=== PATIENT | male | born 1995 | race African-American/Black ===

== ENCOUNTER 2019-06-11 15:08 | Emergency (ER) | payer OTHER ==
[~2019-06-11] VITALS: Ht 175.3 cm; Wt 81.3 kg
[2019-06-11] MEDS ORDERED: TRAMADOL HCL 50 MG TAB PO ONE (16:15)
[2019-06-11 16:27] VITALS: BP 124/75
== END 2019-06-11 16:31 | disposition home or self-care (01) ==
LOC: FSED 15:08
DX: Z93.3 Colostomy status (principal); Z87.19 Personal history of other diseases of the digestive system
CPT/HCPCS: 99283

== ENCOUNTER 2019-11-30 17:27 | Emergency (ER) | payer OTHER ==
[~2019-11-30] VITALS: Ht 170.2 cm; Wt 76.7 kg
--- OUTSIDE RECORDS SUMMARY | 2019-11-30 17:31 | XMS REPORT ---
Author Author 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 Attphys Unavailable KAREN CHACKO Attphys Unavailable TANK MCNULTY M.D., TANK BASSETT M.D. 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 [facility] Allergies, Adverse Reactions, Alerts Allergy Name Allergy Type Status Severity Reaction(s) Onset Date Inacti ve Date Treating Clinician Comments Source No Known Allergies DA Active U 2019-07-13 00:00:00 [facility] No Known Allergies DA Active U 2018-07-21 00:00:00 [facility] Family History Family Member Diagnosis Comments Start Date Stop Date Source Mother [facility] Father Family history of hypertension [facility] Social History Smoking Status Start Date Stop Date Source Never smoker [facility] Medications Ordered Medication Name Filled Medication Name Start Date Stop Da te Current Medication? Ordering Clinician Indication Dosage Frequency Signature (SIG) Comments Components Source Flonase SUSP Flonase SUSP Yes [facility] traMADol HCl TABS traMADol HCl TABS Yes [facility] Vital Signs Vital Name Observation Time Observation Value Comments Source BP Systolic 2019-04-28 15:29:00 102 mm[Hg] Location: RUE; Positi on: Sitting [facility] BP Diastolic 2019-04-28 15:29:00 63 mm[Hg] Location: RUE; Positi on: Sitting [facility] Height 2019-04-28 15:29:00 67 [in_us] [facility] Weight 2019-04-28 15:29:00 177 [lb_av] [facility] Body Mass Index Calculated 2019-04-28 15:29:00 27.72 kg/m2 [facility] Temperature 2019-04-28 15:29:00 96.7 [degF] [facility] Heart Rate 2019-04-28 15:29:00 87 /min [facility] Procedures Procedure Date / Time Performed Performing Clinician Sour e History of Colon surgery [facility] Encounters Start Date/Time End Date/Time En[facility] Encounter ID Source 2019 06:07:00 Inpatient [facility] [address] [facility] 2019-03-01 21:27:00 Inpatient E [facility] [id number] [facility] 2019-07-14 19:04:00 2019-07-14 20:22:00 Departed Emergency Room [facility] [id number] [facility] 2019-06-24 23:22:00 2019-06-24 23:22:00 Emergency [place] [id number] [facility] 2019-06-11 15:08:00 2019-06-11 16:31:00 Departed Emergency Room [facility] [id number] [facility] 2019-05-24 06:11:00 2019-05-24 06:11:[address] 2019-04-28 19:07:00 2019-04-28 19:40:00 Departed Emergency Room [facility] [id number] [facility] 2019-04-28 15:50:00 2019-04-28 15:50:00 Appointment; ROSE MENA M. D. DAVEE, ROY, M.D. [facility] Gastroenterology [facility] [id number] [facility] 2019-04-27 16:00:00 2019-04-27 16:00:00 Appointment; KAREN CHACKO OMAR [facility]TP UTP [id number] [facility] 2019-03-24 16:30:00 2019-03-24 16:30:00 Appointment; KAREN CHACKO OMAR UTP UTP [id number] [facility] 2019-03-05 09:45:00 2019-03-05 09:45:00 Appointment; KAREN CHACKO OMAR UTP [facility] [id number] [facility] 2019-03-05 07:00:00 2019-03-05 07:00:00 Appointment; KAREN CHACKO OMAR UTP [facility] [id number] [facility] 2019-03-04 07:00:00 2019-03-04 07:00:00 Appointment; KAREN CHACKO OMAR [facility] UTP [id number] [facility] 2019-03-03 17:00:00 2019-03-03 17:00:00 Appointment; RICCOKAREN FLEMING OMAR UTP UTP [id number] [facility] Results Test Description Test Time Test Comments Results Result Comments Source - XR FOOT 3 + V RT 2019-09-22 13:10:00 Name: NANCI KUMAR [facility] : 1995 Age/S:24 /M [address] [facility] Unit#:[id number] Loc: [place] [address] 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 The osseous structures are unremarkable in size and shape. The joint spaces are maintained. No evidence of fracture. The phalanges are intact. The metatarsal and tarsal bones are unremarkable IMPRESSION: Unremarkable right foot at 1310 Reported and signed by: Mani Jacob M.D. CC: Kwabena Mix DO; Igor Terrell NP Technologist: DAVID MCNEAL, RT(R),CT Trnscrpt Data: 09/22/2019 (131) t.ALMAR.VTL Orig Print D/T: S: 09/22/2019 (5436) PAGE 1 Signed Report - US ABDOMEN LTD 2019-07-13 20:48:00 Name: CRESPO ROLANDNANCI PRICILA [facility] : 1995 Age/S: 24 / M [address] [facility] Unit #: [id number] Loc: [place] [address] Phys: Mignon Cavazos MD Acct: [id number] Dis Date: Status: REG ER PHONE #: [phone] Exam Date: 07/13/20192044 FAX #: [phone] Reason: COLOSTOMY TAKE DOWN SITE PAIN EXAMS: CPT CODE: [id number] US ABDOMEN LTD [id number] REASON FOR EXAM: COLOSTOMY TAKE. SITE PAIN EXAM ORDER DATE: 07/13/2019 8:09 PM Ordering: Mignon Cavazos MD Attending:Mignon Cavazos MD Location: PROCEDURE: - US ABDOMEN LTD FINDINGS: Limited focal ultrasound performed in the left anterior abdominal wall at the old colostomy site. No evidence of fluid collection, abscess, or hernia noted. IMPRESSION: No evidence of abscess or fluid collection or hernia at 2048 Reported and signed by: Mani Jacob M.D. CC: Kwabena Mix DO Technologist: Mami Spain RDMS Trnscb Date/Time: 07/13/2019 (2047) Pat.VTL Orig Print D/T: S: 07/13/2019 (2050) Probe: PAGE 1 Signed Report BASIC METABOLIC PANEL 2019-07-13 20:41:00 Test Item SODIUM (test code = NA) 141 mmol/L 135-148 N POTASSIUM (test code = K) 3.4 mmol/L 3.5-5.1 L CHLORIDE (test code = CL) 105 mmol/L 101-109 N CARBON DIOXIDE (test code = CO2) 28.2 mmol/L 21-32 N ANION GAP (test code = GAP) 11 mmol/L 10-20 N GLUCOSE (test code = GLU) 90 mg/dL 74-106 N BLOOD UREA NITROGEN (test code = BUN) 10 mg/dL 3-21 N GLOMERULAR FILTRATION RATE (test code = GFR) > 60 mL/min >=60 Estimated GFR by using Modified MDRD formula.Chronic kidney disease is defined as either kidney damageor GFR <60 mL/min/1.73 m2 for >3 months. CREATININE (test code = CREAT) 0.87 mg/dL 0.55-1.3 N BUN/CREATININE RATIO (test code = BUN/CREA) 11.5 10-20 N CALCIUM (test code = CA) 9.2 mg/dL 8.4-10.2 N COMPREHENSIVE METABOLIC [id number] 20:41:00* Test Item Value Reference Range Interpretation Comments TOTAL PROTEIN (test code = PROT) 7.7 g/dL 6.5-8.4 N ALBUMIN (test code = ALB) 3.8 g/dL 3.4-4.8 N GLOBULIN (test code = GLOB) 3.9 G/DL 1-10 N ALBUMIN/GLOBULIN RATIO (test code = A/G) 1.0 RATIO 0.75-1.50 N BILIRUBIN TOTAL (test code = BILT) 0.40 mg/dL 0.0-1.0 N SGOT/AST (test code = AST) 11 U/L 6-32 N SGPT/ALT (test code = ALT) 15 U/L 12-78 N N ote: Change in REFERENCE RANGE due to new reagent method. ALKALINE PHOSPHATASE TOTAL (test code = ALKP) 73 U/L 38-126 N [id number] 20:41:00* Test Item Value Reference Range Interpretation Comments LIPASE (test code = LIP) 134 U/L 128-270 N - XR ANKLE 3 + V [id number] 15:43:00 FAX: Danette Hamilton MD [place]: [place] St: REG Name: NANCI KUMAR [facility] FSED : [birth year] Age/S: 23/M [address] [facility] N Unit #: [id number] Loc: [facility] [address] Phys: Danette Hamilton MD [place], [place] [address] Acct: [id number] Dis Date: Status: REG ER PHONE #: Exam Date: 07/21/2018 1540 FAX #: Reason: pain EXAMS: CPT CODE: [id number] XR ANKLE 3 + V RT [id number] REASON FOR EXAM: pain EXAM ORDER DATE: 07/21/2018 2:58 PM Antonio grajeda M.D.: Danette Hamilton MD PROCEDURE: - XR ANKLE 3 + V RT FINDINGS: 3 views of the right ankle were obtained. The osseous st ructures are unremarkable in size and shape. The joint spaces are maintain ed. No evidence of fracture. The syndesmosis is intact. IMPRE SSION: Unremarkable right ankle at 1541 Reported and signed by: Mani Jacob M.D. CC: Danette Hamilton MD Technologist: Jericho Hogan [facility] Date/Time/By: 07/21/2018 (3227) : By: Arlene Orig Print D/T: S: 07/21/2018 (1264) PAGE 1 Karen d Report - XR TIBIA/FIBULA 2 V [id number] 15:41:00 FAX: Danette Hamilton MD [place]: [place] St: REG Name: NANCI KUMAR [facility] FSED : [birth year] Age/S: 23/M [address] [facility] Unit #: [id number] Loc: [facility] [address] Phys: Danette Hamilton MD [place], [place] [address] Acct: [id number] Dis Date: Status: REG ER PHONE #: Exam Date: 07/21/2018 1540 FAX #: Reason: pain EXAMS: CPT CODE: [id number] XR TIBIA/FIBULA 2 [place] [id number] REASON FOR EXAM: pain EXAM ORDER DATE: 07/21/2018 2:58 PM Antonio grajeda M.D.: Danette Hamilton MD PROCEDURE: - XR TIBIA/FIBULA 2 V RT FINDINGS: 4 views of the right lower extremity were obtained. The osseous structures are unremarkable in size and shape. The joint spac es are maintained. No evidence of fracture. The right knee joint and ankl e joint are grossly intact IMPRESSION: Unremarkable right tibia and fibula at 15 41 Reported and signed by: Mani Jacob M.D. CC: Danette Hamilton MD Technologist: Jericho Hogan Trnwvrd Date/Time/By: (1540) : By: SamiaVTL Orig Print D/T: S: 07/21/2018 (9333) PAGE 1 Signed Report XR ABDOMEN KUB [id number] 12:38:19ABDOMEN, 1 VIEWCLINICAL INFORMATION: Sigmoid volvulus COMPARISONS: August 15, 2017FINDINGS:Again there is massive distention of the sigmoid colon up to 13.5 cm indiameter. No pneumatosis is identified. There is a moderate to largeamount of retained stool in the ascending and transverse colon. Arectal tube is no longer seen.IMPRESSION: Persistent marked gaseous distention of the sigmoid colon in keepingwith a history of volvulus.Location: R16CBC with [id number] 07:23:00* Test Item Value Reference Range Interpretation Comments WBC (test code = WBC) 7.2 K/cumm 4.4-10.5 N RBC (test code = RBC) 4.76 M/cumm 4.10-5.70 N Hemoglobin (test code = HGB) 13.9 gm/dL 13.4-17.4 N Hematocrit (test code = HCT) 42.0 % 38.7-52.0 N MCV (test code = MCV) 88.2 fL 80-100 N MCH (test code = MCH) 29.2 pg 27.0-32.5 N MCHC (test code = MCHC) 33.1 g/dL 32.0-37.5 N RDW (test code = RDW) 12.0 % 11.5-14.5 N Platelet Count (test code = PLTCT) 277 K/cumm 140-440 N MPV (test code = MPV) 6.6 fL Diff Method (test code = DIFFM) Auto Neutrophil (test code = NEUT) 57.3 % 36-70 N Lymphocyte (test code = LYMPH) 28.6 % 12-44 N Monocyte (test code = MONO) 11.8 % 0-11 H Eosinophil (test code = EOS) 1.7 % 0-7 N Basophil (test code = BASO) 0.5 % 0-2 N Neutro Abs (test code = ANEUT) 4.2 K/cumm 1.6-7.4 N Lymph Abs (test code = ALYMPH) 2.1 K/cumm 0.5-4.6 N [place] Abs (test code = AMONO) 0.9 K/cumm 0.0-1.2 N Eos Abs (test code = AEOS) 0.12 K/cumm 0.00-0.74 N Baso Abs (test code = ABASO) 0.0 K/cumm 0.00-0.21 N Basic Metabolic [id number] 07:19:00* Test Item Value Reference Range Interpretation Comments Sodium (test code = NA) 142 mmol/L 135-145 N Potassium (test code = K) 4.4 mmol/L 3.5-5.1 N Chloride (test code = CL) 101 mmol/L 98-105 N Carbon Dioxide (test code = CO2) 31 mmol/L 22-29 H Glucose (test code = GLU) 107 mg/dL 70-115 N Blood Urea Nitrogen (test code = BUN) 6 mg/dL 6-20 N Creatinine (test code = CREAT) 0.9 mg/dL 0.7-1.2 N Calcium (test code = CA) 9.9 mg/dL 8.3-10.5 N BUN/Creatinine Ratio (test code = BCRATIO) 6.7 Anion Gap (test code = AGAP) 10 mmol/L 7-16 N Estimated GFR (test code = GFR) >60 mL/min/1.73m2 eGFR (estimated Glomerular Filtration Rate) is an estimated value,calculated from the patient's serum creatinine using the MDRD equation.It is NOT the patient's actual GFR. The eGFR provides a more clinicallyuseful measure of kidney disease than serum creatinine alone.This calculation takes sex and race into account, if the informationis provided. If the race is not provided, and the patient isAfrican-Bahraini, multiply by 1.212. If sex is not provided, and thepatient is female, multiply by 0.742. Results for patients <18 years ofage have not been validated by the MDRD study and should be interpretedwith caution.eGFR Result Interpretation:eGFR > or = 60 is in the Normal RangeeGFR < 60 may mean kidney diseaseeGFR < 15 may mean kidney failureRanges recommended by the National Kidney Found ation,http://nkdep.nih.gov XR ABDOMEN KUB [id number] 14:51:31EXAM: KUBLocation: A1 INDICATION: Sigmoid volvulusCOMPARISON: KUB performed one day priorDISCUSSION:A frontal view of the abdomen is submitted.A rectal pigtail drainage catheter is in place, with proximal and at thelevel of the proximal and mid descending colon. Sigmoid colon distentionis slightly improved compared to earlier today, with the distal limb ofthe sigmoid colon now measuring 12 cm in diameter, previously 16 cm indiameter earlier today. Overall volume of bowel gas has decreased.Calcification is seen in the right side of the colon. No gross evidenceof intra-abdominal free air is seen. No acute bony abnormalities areidentified.IMPRESSION: Redemonstration of a sigmoid volvulus, with a pigtail rectaltube in place. Overall volume of bowel gas has increased since earliertoday, including decreased volume of air in the distal limb of theredundant sigmoid colon.CBC with [id number] 07:40:00* Test Item Value Reference Range Interpretation Comments WBC (test code = WBC) 7.8 K/cumm 4.4-10.5 N RBC (test code = RBC) 4.43 M/cumm 4.10-5.70 N Hemoglobin (test code = HGB) 12.9 gm/dL 13.4-17.4 L Hematocrit (test code = HCT) 39.3 % 38.7-52.0 N MCV (test code = MCV) 88.7 fL 80-100 N MCH (test code = MCH) 29.2 pg 27.0-32.5 N MCHC (test code = MCHC) 32.9 g/dL 32.0-37.5 N RDW (test code = RDW) 12.2 % 11.5-14.5 N Platelet Count (test code = PLTCT) 245 K/cumm 140-440 N MPV (test code = MPV) 6.9 fL Diff Method (test code = DIFFM) Auto Neutrophil (test code = NEUT) 63.8 % 36-70 N Lymphocyte (test code = LYMPH) 22.7 % 12-44 N Monocyte (test code = MONO) 12.0 % 0-11 H Eosinophil (test code = EOS) 1.0 % 0-7 N Basophil (test code = BASO) 0.5 % 0-2 N Neutro Abs (test code = ANEUT) 5.0 K/cumm 1.6-7.4 N Lymph Abs (test code = ALYMPH) 1.8 K/cumm 0.5-4.6 N [place] Abs (test code = AMONO) 0.9 K/cumm 0.0-1.2 N Eos Abs (test code = AEOS) 0.08 K/cumm 0.00-0.74 N Baso Abs (test code = ABASO) 0.0 K/cumm 0.00-0.21 N Basic Metabolic [id number] 06:57:00* Test Item Value Reference Range Interpretation Comments Sodium (test code = NA) 128 mmol/L 135-145 L Potassium (test code = K) 3.2 mmol/L 3.5-5.1 L Chloride (test code = CL) 112 mmol/L 98-105 H Carbon Dioxide (test code = CO2) 28 mmol/L 22-29 N Glucose (test code = GLU) 96 mg/dL 70-115 N Blood Urea Nitrogen (test code = BUN) 7 mg/dL 6-20 N Creatinine (test code = CREAT) 0.9 mg/dL 0.7-1.2 N Calcium (test code = CA) 9.5 mg/dL 8.3-10.5 N BUN/Creatinine Ratio (test code = BCRATIO) 7.8 Anion Gap (test code = AGAP) -12 mmol/L 7-16 L Estimated GFR (test code = GFR) >60 mL/min/1.73m2 eGFR (estimated Glomerular Filtration Rate) is an estimated value,calculated from the patient's serum creatinine using the MDRD equation.It is NOT the patient's actual GFR. The eGFR provides a more clinicallyuseful measure of kidney disease than serum creatinine alone.This calculation takes sex and race into account, if the informationis provided. If the race is not provided, and the patient isAfrican-Bahraini, multiply by 1.212. If sex is not provided, and thepatient is female, multiply by 0.742. Results for patients <18 years ofage have not been validated by the MDRD study and should be interpretedwith caution.eGFR Result Interpretation:eGFR > or = 60 is in the Normal RangeeGFR < 60 may mean kidney diseaseeGFR < 15 may mean kidney failureRanges recommended by the National Kidney Found ation,http://nkdep.nih.gov XR ABDOMEN KUB [id number] 12:33:14LOCATION: [id number]: 22-year-old male with sigmoid volvulus. The patient is statuspost rectal tube placement.COMMENT:Spine radiograph of the abdomen was obtained at 12:07 p.m., and comparedto prior study taken earlier this morning.Again seen is diffusely distended sigmoid colon, with sigmoid volvulus.Since the prior study and enteric tube has been placed with the tube tipis also the left mid abdomen likely within a loop of the mid descendingcolon. The degree of distention of the sigmoid colon is notsignificantly changed from the prior study.IMPRESSION:This patient is status post enteric tube placement the rectum with thetube tip seen left mid abdomen presumably within the loop of the middescending colon. The sigmoid about this changes are not significantlychanged from the studies obtained earlier today.XR ABDOMEN KUB [id number] 09:18:32EXAM: KUBLocation: A1 INDICATION: Abdominal distentionCOMPARISON: 08/14/2017DISCUSSION:A frontal view of the abdomen is submitted.There are persistent changes of a sigmoid colon volvulus which arebetter seen on the CT performed earlier today. This is partiallyobstructive given the dilation of the transverse colon. Contrast is seenwithin the bladder. No definite evidence of intra-abdominal free air isseen. No acute bony abnormalities are identified.IMPRESSION: Redemonstration of a sigmoid colon volvulus.XR ABDOMEN KUB [id number] 07:32:39EXAM: KUBLocation: A1 INDICATION: Abdominal distentionCOMPARISON: CT abdomen and pelvis performed 5:28 AM earlier todayDISCUSSION:A frontal view of the abdomen is submitted.There are persistent changes of a sigmoid colon volvulus which arebetter seen on the CT performed earlier today. This is partiallyobstructive given the dilation of the transverse colon. Contrast is seenwithin both renal collecting systems and the bladder. No gross evidenceof intra-abdominal free air is seen. No acute bony abnormalities areidentified.IMPRESSION: Redemonstration of a sigmoid colon volvulus.07205& PELVIS W/[id number] 06:07:59CT ABDOMEN AND PELVIS WITH CONTRASTAfter- hours services performed at 0528 hours.LOCATION: [id number]: Abdominal distention.COMPARISON: None.TECHNIQUE: Volumetric CT acquisition of the abdomen and pelvis afterintravenous administration of 100 mL Isovue-300. Axial images werereconstructed. One or more of the following radiation dose reductiontechniques was used: automated exposure control, adjustment of the mAand/or kV according to patient size, and/or utilization of iterati vereconstructive technique.FINDINGS:The lung bases are clear. Visualized portion s of the heart are normal.The liver, gallbladder, pancreas, spleen, and adrenal glands are normal.The kidneys, ureters, and bladder are normal. The prostate and seminalvesicles are normal. The small bowel is normal. The appendix is notdefin itely visualized. There is no pericecal fat stranding or fluid tosuggest appendi citis. The sigmoid colon is twisted upon itself and isdilated up to 13 cm in ning meter. There is associated swirling of themesentery. The transverse colon measur es 12 cm in diameter. No colonicwall thickening is visualized.There is no lympha denopathy, vascular abnormality, free air, or focalosseous abnormality in the ab domen or pelvis. A small amount of leftupper quadrant intraperitoneal free fluid is present.IMPRESSION:Sigmoid volvulus. No evidence of rupture at this time. [id number] 04:08:00* Test Item Value Reference Range Interpretation Comments Amphetamine (test code = AMPH) Negative Negative N For diagnostic purposes only, positive results should always be assessedin conjunctionwith the patient's medical history,clinical examination and otherfindings.To fulfill legal requirements, a more specific alternate chemical methodmust be used inorder to obtain a Confirmed analytical result. GC/MS is the preferred confirmatory method. Barbiturates (test code = EDWARD) Negative Negative N Benzodiazepine (test code = ALISHA) Negative Negative N Cocaine (test code = COCA) Negative Negative N Methadone (test code = MTHD) Negative Negative N Opiates (test code = OPIA) Negative Negative N PCP (test code = PCP) Negative Negative N Propoxyphene (test code = PROPOX) Negative Negative N THC (test code = THC) Negative Negative N Comprehensive Metabolic [id number] 04:04:00* Test Item Value Reference Range Interpretation Comments Sodium (test code = NA) 138 mmol/L 135-145 N Potassium (test code = K) 3.5 mmol/L 3.5-5.1 N Chloride (test code = CL) 98 mmol/L 98-105 N Carbon Dioxide (test code = CO2) 25 mmol/L 22-29 N Glucose (test code = GLU) 95 mg/dL 70-115 N Blood Urea Nitrogen (test code = BUN) 12 mg/dL 6-20 N Creatinine (test code = CREAT) 0.9 mg/dL 0.7-1.2 N Calcium (test code = CA) 10.4 mg/dL 8.3-10.5 N Prot Total (test code = TP) 8.0 g/dL 6.4-8.3 N Albumin (test code = ALB) 5.4 g/dL 3.5-5.2 H A/G Ratio (test code = AGRATIO) 2.1 Ratio Globulin (test code = GLOB) 2.6 2.9-3.1 L Bili Total (test code = TBIL) 1.7 mg/dL 0.1-0.9 H Alk Phos (test code = APHOS) 68 U/L 40-129 N AST (test code = AST) 20 U/L 1-40 N ALT (test code = ALT) 17 U/L 1-41 N BUN/Creatinine Ratio (test code = BCRATIO) 13.3 Anion Gap (test code = AGAP) 15 mmol/L 7-16 N Estimated GFR (test code = GFR) >60 mL/min/1.73m2 eGFR (estimated Glomerular Filtration Rate) is an estimated value,calculated from the patient's serum creatinine using the MDRD equation.It is NOT the patient's actual GFR. The eGFR provides a more clinicallyuseful measure of kidney disease than serum creatinine alone.This calculation takes sex and race into account, if the informationis provided. If the race is not provided, and the patient isAfrican-Bahraini, multiply by 1.212. If sex is not provided, and thepatient is female, multiply by 0.742. Results for patients <18 years ofage have not been validated by the MDRD study and should be interpretedwith caution.eGFR Result Interpretation:eGFR > or = 60 is in the Normal RangeeGFR < 60 may mean kidney diseaseeGFR < 15 may mean kidney failureRanges recommended by the National Kidney Found ation,http://nkdep.nih.gov [id number] 04:04:00* Test Item Value Reference Range Interpretation Comments Lipase (test code = LIP) 13 U/L 13-60 N Alcohol/Ethanol, [id number] 04:00:00* Test Item Value Reference Range Interpretation Comments Alcohol, Ethyl (test code = ETOH) <0.01 g/dL 0.00-0.01 N Intoxicated 0.080 g/dL or more Urinalysis [id number] 03:52:00* Test Item Value Reference Range Interpretation Comments Color (test code = COLOR) Yellow Yellow,Straw,Pl yellow N Clarity (test code = CLAR) Clear Clear N Specific [place] (test code = SPGR) 1.023 1.001-1.035 N pH (test code = PH) 5.0 5.0-9.0 N Ketone (test code = KET) 150 mg/dL Negative A Glucose (test code = GLUCUR) Negative mg/dL Negative N Protein (test code = PROT) 25 mg/dL Negative A Bilirubin (test code = BILI) Negative mg/dL Negative N Occult Blood (test code = UDOB) Negative Negative N Urobilinogen (test code = UROB) 0.2 mg/dL 0.2-1.0 N Nitrite (test code = NIT) Negative Negative N Leuk Esterase (test code = LEUK) Negative Negative N Micros Exam (test code = MEXAM) Indicated Epithelial Cells (test code = EPI) Few /LPF 0-30 A WBC, Urine (test code = UWBC) 0-5 /HPF 0-5 N RBC, Urine (test code = URBC) 0-3 /HPF 0-5 A Bacteria (test code = BACT) Few /HPF CBC with [id number] 03:48:00* Test Item Value Reference Range Interpretation Comments WBC (test code = WBC) 10.3 K/cumm 4.4-10.5 N RBC (test code = RBC) 5.02 M/cumm 4.10-5.70 N Hemoglobin (test code = HGB) 14.5 gm/dL 13.4-17.4 N Hematocrit (test code = HCT) 41.5 % 38.7-52.0 N MCV (test code = MCV) 82.8 fL 80-100 N MCH (test code = MCH) 28.9 pg 27.0-32.5 N MCHC (test code = MCHC) 34.9 g/dL 32.0-37.5 N RDW (test code = RDW) 12.5 % 11.5-14.5 N Platelet Count (test code = PLTCT) 269 K/cumm 140-440 N MPV (test code = MPV) 9.2 fL Diff Method (test code = DIFFM) Auto Neutrophil (test code = NEUT) 71.2 % 36-70 H Lymphocyte (test code = LYMPH) 18.4 % 12-44 N Monocyte (test code = MONO) 9.4 % 0-11 N Eosinophil (test code = EOS) 0.7 % 0-7 N Basophil (test code = BASO) 0.3 % 0-2 N Neutro Abs (test code = ANEUT) 7.3 K/cumm 1.6-7.4 N Lymph Abs (test code = ALYMPH) 1.9 K/cumm 0.5-4.6 N [place] Abs (test code = AMONO) 1.0 K/cumm 0.0-1.2 N Eos Abs (test code = AEOS) 0.07 K/cumm 0.00-0.74 N Baso Abs (test code = ABASO) 0.0 K/cumm 0.00-0.21 N
[2019-11-30] MEDS ORDERED: IBUPROFEN400 MG PO (17:46)
[2019-11-30] MEDS ORDERED: IBUPROFEN 600 MG TAB ONE (18:02)
[2019-11-30] MEDS ORDERED: IBUPROFEN 600 MG TAB PO STA (18:02)
--- NOTE | 2019-11-30 18:03 | Emergency Department Note ---
History of Present Illnes History of Present Illness Chief Complaint: General Medicine Complaints History of Present Illness This is a 24 year old male, with no signficant PMH who presents for evaluation of right ankle pain. 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 He c/o pain along the arch of the right foot and also below the right lateral malleolus. Pt denies history of previous similar injury. 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 Any updates have been documented here. Past Medical History Recent Fever: No Clinical Suspicion of Infectio: No New/Unexplained Change in Ment: No Past Medical History: None Past Surgical History: Colon Resection Other Surgery: colostomy Social History Smoking Cessation: Never Smoker Counseling Performed: No Alcohol Use: None Any Illegal Drug Use: No TB Exposure/Symptoms: No Physically hurt or threatened: No Family History Family history of heart diseas: No Other Last Tetanus: UTD Any Pre-Existing Lines (PICC,: No Is patient up to date on immun: Yes Last Flu: OOD Last Pneumovax: NA Review of Systems Review of Systems Constitutional: no symptoms EENTM: no symptoms Cardiovascular: no symptoms Respiratory: no symptoms Gastrointestinal: no symptoms Musculoskeletal: joint pain, other (right foot and ankle pain) Neurological: no symptoms Psychological: no symptoms Review of other systems All other systems reviewed and negative. Physical Exam Related Data Allergies: Coded Allergies: No Known Allergies (Unverified , 06/11/19) Triage Vital Signs Vital Signs Date Time Temp Pulse Resp B/P (MAP) Pulse Ox O2 Delivery O2 Flow Rate FiO2 11/30/19 17:29 97.5 75 16 125/71 99 Vital signs reviewed: Yes Physical Exam CONSTITUTIONAL Constitutional: well-developed, well-nourished HENT HENT: normocephalic, atraumatic, oropharynx clear/moist, nose normal HENT L/R: left ext ear normal, right ext ear normal EYES Eyes: PERRL, conjunctivae normal NECK Neck: ROM normal PULMONARY Pulmonary: effort normal, breath sounds normal CARDIOVASCULAR Cardiovascular: regular rhythm, heart sounds normal, capillary refill normal, normal rate GASTROINTESTINAL GENITOURINARY SKIN Skin: warm, dry MUSCULOSKELETAL Musculoskeletal: tenderness (mild ttp below right lateral malleolus, with no visible swelling, deformity or crepitus; FROM) NEUROLOGICAL Neurological: alert, oriented x 3, no gross motor or sensory deficits PSYCHOLOGICAL Results Imaging Imaging results reviewed: Yes Impressions xray right ankle - negative for any osseous abnormality or fracture. Diagnostics Tests Diagnostic test(s) reviewed: Yes Critical Care Time Subsequent provider I assumed direction of critical care for this patient from another provider of my specialty. Assessment & Plan Assessment & Plan Final Impression: (1) SPRAIN OF UNSPECIFIED LIGAMENT OF RIGHT ANKLE, INIT ENCNTR Assessment & Plan - xray negative, minimal soft tissue tenderness or swelling. Pt is able to ambulate with out significant pain. - advised pt to continue the Extra Strength Tylenol and alternate with Ibuprofen 600 mg. Pt states that the ibuprofen "upsets his stomach," and that he typcially "needs Tramadol," whenever he has significant pain. 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 Explained that I could not fill another Rx for Tramadol, and that he would need to use RICE, and pt provided an Rx for Naproxen,to be taken with the Rx for Omeprazole, to try and minimize GI upset. - pt voiced understanding of the plan. Pt to f/u with PCP, if symptoms worsen. Depart Disposition: HOME, SELF-CARE Last Vital Signs Date Time Temp Pulse Resp B/P (MAP) Pulse Ox O2 Delivery O2 Flow Rate FiO2 11/30/19 17:29 97.5 75 16 125/71 99 Home Meds Active Scripts Omeprazole (OMEPRAZOLE) 40 Mg Capsule., 1 TAB PO DAILY for to protect stomach, #30 TAB 0 Refills Prov:YRIS LOVING MD 11/30/19 Naproxen (NAPROXEN) 250 Mg Tablet, 500 MG PO BID for for pain, #20 TAB 0 Refills Prov:YRIS LOVING MD 11/30/19 Discontinued Scripts Ibuprofen (IBUPROFEN) 400 Mg Tablet, 400 MG PO Q4H, #20 TAB 0 Refills Prov:YRIS LOVING MD 11/30/19 Medications in the ED Ibuprofen 600 mg STK-MED ONCE .ROUTE ; Start 11/30/19 at 18:02; Stop 11/30/19 at 17:57; Status DC YRIS LOVING MD November 30, 2019 18:03
--- NOTE | 2019-11-30 18:15 | Diagnostic Imaging Report ---
Exam: Right ankle 3 views History: Pain Comparison: None. Findings: No fracture or malalignment. Joint spaces preserved. No abnormal soft tissue calcification or soft tissue defect. Impression: No acute osseous abnormality Signed by: Dr. Akhil Puga M.D. on 11/30/2019 6:12 PM
[2019-11-30] MEDS ORDERED: NAPROXEN250 MG PO (18:38)
[2019-11-30] MEDS ORDERED: OMEPRAZOLE40 MG PO (18:39)
== END 2019-11-30 18:54 | disposition home or self-care (01) ==
LOC: FSED 17:27
DX: M25.571 Pain in right ankle and joints of right foot (principal); S93.401A Sprain of unspecified ligament of right ankle, initial encounter; Y93.67 Activity, basketball; Y92.310 Basketball court as the place of occurrence of the external cause; Z98.0 Intestinal bypass and anastomosis status; Z93.3 Colostomy status
CPT/HCPCS: 99283